=== PATIENT | male | born 1970 ===

== ENCOUNTER 2018-04-06 06:53 | Emergency (ER) | payer MEDICAID ==
[2018-04-06 07:01] VITALS: RESP 18; TEMP 98.3
--- NOTE | 2018-04-06 07:50 | ED PDOC ---
Arrival/HPI - General Historian: Patient - History of Present Illness Narrative History of Present Illness (Text): 04/06/18 07:44 47M w/ no significant PMH complaining of lower back pain onset x 1 day. Patient reported lower back pain started at work yesterday after he bent down to lift a heavy box located in bilateral lumbar region. Denies any numbness/tingling, loss of bowel/bladder function, urinary pain/discomfort. Reports that pain is worse w/ lying down .Describes pain a achy quality 10/02. Denies any gait instability. Patient denies any resolution w/ motrin. Denies any trauma Patient was also complaining of R neck pain; He reports he has had a chronic cracked tooth in his R jaw which he had never addressed. Patient reported he felt a nodule in his jaw yesterday and was concerned about it. Has not seen a dentist to address the dental issue. Of note upon ROS patient was complaining of testicular pain, L>R which has been chronic x 4-5 months; denies any resent change in presentation PMH: Denies PMD: Seth/Rogers PSH: Sonam Alston Social: Drinks socially, denies tobacco/illicit 04/06/18 08:18 <Suhail Mccloud - Last Filed: 04/06/18 08:20> <Julia Rojas - Last Filed: 04/06/18 08:25> - General Chief Complaint: Back Pain Time Seen by Provider: 04/06/18 07:23 Past Medical History - Infectious Disease Hx of Infectious Diseases: None - Cardiac Hx Cardiac Disorders: No - Pulmonary Hx Respiratory Disorders: No - Neurological Hx Neurological Disorder: No - HEENT Hx HEENT Disorder: No - Renal Hx Renal Disorder: No - Endocrine/Metabolic Hx Endocrine Disorders: No - Hematological/Oncological Hx Blood Disorders: No - Integumentary Hx Dermatological Disorder: No - Musculoskeletal/Rheumatological Hx Musculoskeletal Disorders: No - Gastrointestinal Hx Gastrointestinal Disorders: No - Genitourinary/Gynecological Hx Genitourinary Disorders: No - Psychiatric Hx Psychophysiologic Disorder: No Hx Substance Use: No - Surgical History Hx Appendectomy: Yes - Anesthesia Hx Anesthesia: Yes Hx Anesthesia Reactions: No Hx Malignant Hyperthermia: No <Suhail Mccloud - Last Filed: 04/06/18 08:20> Family/Social History Family/Social History: Unknown Family HX Smoking Status: Never Smoked Hx Alcohol Use: No Hx Substance Use: No <Suhail Mccloud - Last Filed: 04/06/18 08:20> Allergies/Home Meds <Suhail Mccloud - Last Filed: 04/06/18 08:20> <Julia Rojas - Last Filed: 04/06/18 08:25> Allergies/Adverse Reactions: Allergies No Known Allergies Allergy (Verified 04/06/18 07:01) Review of Systems - Review of Systems Constitutional: Normal Eyes: Normal ENT: Other (as perHPI) Respiratory: Normal Cardiovascular: Normal Gastrointestinal: Normal Genitourinary Male: Other (As per HPI) Musculoskeletal: Other (As per HPI) Skin: Normal Neurological: Normal Endocrine: Normal Hemo/Lymphatic: Normal Psychiatric: Normal <Suhail Mccloud - Last Filed: 04/06/18 08:20> Physical Exam Vital Signs Temp Pulse Resp BP Pulse Ox 04/06/18 07:01 98.3 F 107 H 18 116/66 95 Temperature: Afebrile Blood Pressure: Normal Pulse: Regular Respiratory Rate: Normal Appearance: Positive for: Well-Appearing, Non-Toxic, Comfortable Mental Status: Positive for: Alert and Oriented X 3 - Systems Exam Head: Present: Atraumatic, Normocephalic Pupils: Present: PERRL Extroacular Muscles: Present: EOMI Conjunctiva: Present: Normal Mouth: Present: Other (R sided tooth is cracked / missing w/ erythema and inflammation of gingiva surrounding the tooth; no masses in floor of mouth ) Neck: Present: Lymphadenopathy (R anterior neck ; tender to palpation) Respiratory/Chest: Present: Clear to Auscultation, Good Air Exchange Cardiovascular: Present: Normal S1, S2. No: Murmurs Abdomen: Present: Normal Bowel Sounds. No: Tenderness Genitourinary Male: Present: Normal External Genitalia. No: Lesions, Penile Discharge, Testicle Tenderness, Hernias Back: Present: Other (BL Lumbar Paraspinal Spasm ). No: Midline Tenderness, Pain with Leg Raise Upper Extremity: Present: Normal Inspection Lower Extremity: Present: Normal Inspection, Capillary Refill < 2 s Neurological: Present: GCS=15, CN II-XII Intact, Normal Sensory Function, Gait Normal, Other (Motor function normal ) Skin: Present: Warm, Dry, Normal Color Psychiatric: Present: Alert, Oriented x 3 <Suhail Mccloud - Last Filed: 04/06/18 08:20> Vital Signs Temp Pulse Resp BP Pulse Ox 04/06/18 07:01 98.3 F 107 H 18 116/66 95 <Julia Rojas - Last Filed: 04/06/18 08:25> Medical Decision Making ED Course and Treatment: 04/06/18 08:02 BL Lumbar spasm -Muscle Relaxant -Naproxen -Follow up w/ PCP Dental Infection/R jaw spasm -Amoxicillin -F/u w/ dentist Scrotal Pain -Has been on going x4-5 months -No remarkable findings on exam; No tenderness Noted on exam -Patient is to follow up w/ his primary care doctor Please follow up with your primary care doctor within 7 days Please follow up with your dentist within 7 days Please return to any emergency department if your symptoms worsen or new concerning/worsening symptoms arise. <Suhail Mccloud - Last Filed: 04/06/18 08:20> - Medication Orders Current Medication Orders: Discontinued Medications Naproxen (Anaprox Ds) 550 mg PO BID SHAWN Last Admin: 04/06/18 08:13 Dose: 550 mg <Julia Rojas - Last Filed: 04/06/18 08:25> Disposition/Present on Arrival - Present on Arrival Any Indicators Present on Arrival: No History of DVT/PE: No History of Uncontrolled Diabetes: No Urinary Catheter: No History of Decub. Ulcer: No History Surgical Site Infection Following: None - Disposition Have Diagnosis and Disposition been Completed?: Yes Disposition Time: 08:16 <Suhail Mccloud - Last Filed: 04/06/18 08:20> - Present on Arrival Any Indicators Present on Arrival: No History of DVT/PE: No History of Uncontrolled Diabetes: No Urinary Catheter: No History of Decub. Ulcer: No - Disposition Have Diagnosis and Disposition been Completed?: Yes Patient Plan: Discharge <Julia Rojas - Last Filed: 04/06/18 08:25> - Disposition Diagnosis: Lumbar strain, Chronic dental infection, Scrotal pain Disposition: HOME/ ROUTINE Patient Problems: Current Active Problems Problem Status Onset Chronic dental infection Acute Lumbar strain Acute Scrotal pain Acute Condition: GOOD Discharge Instructions (ExitCare): Lumbar Muscle Strain (DC), Tooth Abscess (DC), Exercise Band Exercises for the Back and Hips Prescriptions: RX: Amoxicillin [Amoxil 500 mg Cap] 500 mg PO Q8 #21 cap Cyclobenzaprine [Cyclobenzaprine HCl] 10 mg PO TID PRN #15 tab PRN Reason: Back Pain Naproxen [Naprosyn] 500 mg PO BID #10 tablet Forms: [facility] (Croatian)
[2018-04-06 08:31] VITALS: BP 132/70; PULSE 78; O2SAT 98
[2018-04-06] MEDS ORDERED: Naproxen 550 mg Tab PO SCH (10:00)
== END 2018-04-06 08:30 | disposition home or self-care (01) ==
LOC: ED 06:53
DX: S39.012A Strain of muscle, fascia and tendon of lower back, initial encounter (principal); X50.0XXA Overexertion from strenuous movement or load, initial encounter; Y99.0 Civilian activity done for income or pay; K04.7 Periapical abscess without sinus

== ENCOUNTER 2018-07-22 07:08 | Emergency (ER) | payer MEDICAID ==
[2018-07-22 07:23] VITALS: BMI 38.9
[2018-07-22 07:27] VITALS: BP 160/93; PULSE 77; RESP 21; TEMP 97.8; O2SAT 96
--- NOTE | 2018-07-22 07:59 | ED PDOC ---
Arrival/HPI - General Chief Complaint: Back Pain Time Seen by Provider: 07/22/18 07:35 Historian: Patient - History of Present Illness Narrative History of Present Illness (Text): 07/22/18 07:59 48 year old male, with no significant past medical history, presents to the emergency department complaining of lower back pain s/p lifting a couch at work yesterday. Patient reports when he lifted the couch he felt the pain right away. He reports at first the pain shot down his right leg, but it no longer does and it just remains localized to his right lower back. Patient reports the pain worsens with movement. He reports he took Naproxen yesterday without any relief. Patient denies any fever, chills, chest pain, shortness of breath, nausea, vomiting, diarrhea, urinary symptoms, neck pain, headache, dizziness, or any other complaints. PMD: Ann/Rogers Time/Duration: 24 hours Symptom Onset: Sudden Symptom Course: Unchanged Activities at Onset: Light Context: Work Past Medical History - Provider Review Nursing Documentation Reviewed: Yes - Infectious Disease Hx of Infectious Diseases: None - Cardiac Hx Cardiac Disorders: No - Pulmonary Hx Respiratory Disorders: No - Neurological Hx Neurological Disorder: No - HEENT Hx HEENT Disorder: No - Renal Hx Renal Disorder: No - Endocrine/Metabolic Hx Endocrine Disorders: No - Hematological/Oncological Hx Blood Disorders: No - Integumentary Hx Dermatological Disorder: No - Musculoskeletal/Rheumatological Hx Musculoskeletal Disorders: No - Gastrointestinal Hx Gastrointestinal Disorders: No - Genitourinary/Gynecological Hx Genitourinary Disorders: No - Psychiatric Hx Psychophysiologic Disorder: No Hx Substance Use: No - Surgical History Hx Appendectomy: Yes - Anesthesia Hx Anesthesia: Yes Hx Anesthesia Reactions: No Hx Malignant Hyperthermia: No Family/Social History - Physician Review Nursing Documentation Reviewed: Yes Family/Social History: No Known Family HX Smoking Status: Never Smoked Hx Alcohol Use: No Hx Substance Use: No Allergies/Home Meds Allergies/Adverse Reactions: Allergies No Known Allergies Allergy (Verified 07/22/18 07:23) Review of Systems - Physician Review All systems were reviewed & negative as marked: Yes - Review of Systems Constitutional: absent: Fevers, Other (chills) Respiratory: absent: SOB Cardiovascular: absent: Chest Pain Gastrointestinal: absent: Diarrhea, Nausea Genitourinary Male: absent: Dysuria, Frequency, Hematuria Musculoskeletal: Back Pain. absent: Neck Pain Neurological: absent: Headache, Dizziness Physical Exam - Physical Exam Narrative Physical Exam (Text): Gen: VS reviewed, alert, well developed, well nourished, nontoxic, mild distress. ENT: normal pharynx. Eye: EOMI, PERRL. Neck: no JVD, supple, no adenopathy. CV: regular rate, regular rhythm, no rubs, no murmur, no gallops, S1, S2, pulses equal and strong. Pulm: no distress, clear to auscultation, no wheeze, no rhonchi, breath sounds equal, no rales. Abd: soft, nontender, no guarding, no rebound, no rigidity, normal bowel sounds. Back: Right paraspinal muscle tightness Ext: no edema. Skin: good color, no rash, no cyanosis. Psych: responds appropriately to questions, normal affect. Neuro: oriented x 3, CN2-12 intact grossly, motor intact, sensation intact. Vital Signs Reviewed: Yes Vital Signs Temp Pulse Resp BP Pulse Ox 07/22/18 07:24 97.8 F 77 21 160/93 H 96 Temperature: Afebrile Blood Pressure: Hypertensive Pulse: Regular Respiratory Rate: Normal Medical Decision Making ED Course and Treatment: 07/22/18 07:59 Impression: 48 year old male presents complaining of right lower back pain s/p lifting a couch at work yesterday. Plan: -- Flexeril, Toradol, Tylenol -- Reassess and disposition Prior Visits: Notes and results from previous visits were reviewed. Progress Notes: 07/22/18 08:51 patient reports near resolution of pain. low back pain without neuro deficits or red flags to suggest tumor or spinal epidural abscess. pain msk in nature. patient informed to follow up with pcp for possible advanced imaging for persistent or worsening pain. - Scribe Statement The provider has reviewed the documentation as recorded by the Cesar Louis Provider Scribe Attestation: All medical record entries made by the Deliciaibfranchesca were at my direction and personally dictated by me. I have reviewed the chart and agree that the record accurately reflects my personal performance of the history, physical exam, medical decision making, and the department course for this patient. I have also personally directed, reviewed, and agree with the discharge instructions and disposition. Disposition/Present on Arrival - Present on Arrival Any Indicators Present on Arrival: No History of DVT/PE: No History of Uncontrolled Diabetes: No Urinary Catheter: No History of Decub. Ulcer: No History Surgical Site Infection Following: None - Disposition Have Diagnosis and Disposition been Completed?: Yes Diagnosis: Lumbar strain Disposition: HOME/ ROUTINE Disposition Time: 08:52 Patient Plan: Discharge Condition: STABLE Discharge Instructions (ExitCare): Lumbar Muscle Strain (DC) Additional Instructions: follow up with your primary care doctor. you may need advanced imaging such as an MRI for persistent or worsening pain. Prescriptions: Cyclobenzaprine [Flexeril] 5 mg PO TID #15 tab Ketorolac Tromethamine [Toradol] 10 mg PO Q6H 5 Days #20 tab Forms: [facility] (Ivorian), WORK NOTE
== END 2018-07-22 09:00 | disposition home or self-care (01) ==
LOC: ED 07:08
DX: S39.012A Strain of muscle, fascia and tendon of lower back, initial encounter (principal); X50.0XXA Overexertion from strenuous movement or load, initial encounter; Y92.89 Other specified places as the place of occurrence of the external cause; Y99.8 Other external cause status
CPT/HCPCS: 96372; 99282; J1885